=== PATIENT | male | born 1955 | race Caucasian/White ===

== ENCOUNTER 2025-05-07 03:17 | Inpatient (IN) | payer MEDICARE, MEDICAID ==
[2025-05-07] VITALS (8 sets, daily range): BP systolic 104–129; BP diastolic 60–82; PULSE 79–96; RESP 16–24; TEMP 97.5–99.2; O2SAT 92–96
[~2025-05-07] VITALS: Ht 182.9 cm; Wt 201.0 kg
--- NOTE | 2025-05-07 03:46 | ELECTROCARDIOGRAPH REPORT ---
[facility] Test Date: 2025-05-07 Test Time: 03:25:44 Pat Name: MILLI MELO Department: EMERGENCY ROOM Patient ID: [facility]-[id number] Room: Gender: M Contact Center Manager: : 1955 Requested By: DEE LOPES Order Number: [id number] Reading MD: Dr. Dee Lopes Measurements Intervals [place] Rate: 76 P: 54 SC: 178 QRS: -6 QRSD: 109 T: 46 QT: 415 QTc: 467 Interpretive Statements Sinus rhythm Electronically Signed On 05-07-2025 4:00:[address] Dee Lopes Please click the below link to view image of tracing.
[2025-05-07 04:19] LABS: MEAN PLATELET VOLUME 7.1 FL (7.4-10.4); RED CELL DISTRIBUTION WIDTH 16.1 % (11.5-14.5)
[2025-05-07 04:30] LABS: ABG BASE EXCESS 4.9 mmol/L (-2.0-3.0); ABG HCO3 30.9 mmol/L (21.0-28.0); ABG OXYGEN SATURATION 98.4 % (94.0-98.0); ABG PCO2 (T) 53.2 mmHg (35.0-48.0); ABG PH (T) 7.383 (7.350-7.450); ABG PO2 (T) 117.5 mmHg (83.0-108.0); ALLEN'S TEST Modified; FCOHb 1.0 % (0.5-1.5); FHHb 1.6 % (0.0-5.0); FIO2 32.0 mmHg/%; FMetHb 0.0 % (0.0-1.5); FO2Hb 97.4 % (94.0-98.0); MODE oxy mask; PATIENT TEMPERATURE 37.1; TOTAL HEMOGLOBIN 10.5 G/dl (13.5-17.5)
--- NOTE | 2025-05-07 04:39 | RADIOLOGY REPORT ---
CHEST RADIOGRAPH Indication: CP Technique: Single frontal view of the chest was obtained Comparison: None IMPRESSION: Heart is enlarged. Moderate pulmonary vascular congestion with diffuse patchy airspace opacities which may be on the basis of pulmonary edema or infection. No sizable effusion or pneumothorax.
[2025-05-07] MEDS ORDERED: FURO20TA4 PO (06:09)
[2025-05-07] MEDS ORDERED: FERR325T29 PO (06:09)
[2025-05-07] MEDS ORDERED: PANT40TA54 PO (06:09)
[2025-05-07] MEDS ORDERED: GABA-535 PO (06:09)
[2025-05-07] MEDS ORDERED: ZOLP-679 PO (06:09)
[2025-05-07] MEDS ORDERED: FAMO20TA8 PO (06:09)
[2025-05-07] MEDS ORDERED: POTA-366 PO (06:09)
[2025-05-07] MEDS ORDERED: LEVO100T9 PO (06:09)
[2025-05-07] MEDS ORDERED: DOXE50CA4 PO (06:09)
[2025-05-07] MEDS ORDERED: BUSP5TAB3 (06:09)
[2025-05-07] MEDS ORDERED: QUET100T34 PO (06:09)
[2025-05-07] MEDS ORDERED: ROSU10TA98 PO (06:09)
[2025-05-07] MEDS ORDERED: BACL20TA PO (06:09)
[2025-05-07] MEDS ORDERED: BUSP15TA7 PO (06:09)
[2025-05-07] MEDS ORDERED: APIX5TAB3 PO (06:09)
[2025-05-07] MEDS ORDERED: MIDO5TAB4 PO (06:09)
[2025-05-07 06:10] LABS: CREATININE 0.88 MG/DL (0.60-1.10); PRO BRAIN NATRIURETIC PEPTIDE 4295 PG/ML (0-125); TOTAL CARBON DIOXIDE 34.3 MMOL/L (24-32); eCRCL 87 ML/MIN; eGFR 86 ML/MIN
[2025-05-07] MEDS ORDERED: magnesium sulf-water 4G/100mL 100 ML IV PRN (06:20)
[2025-05-07] MEDS ORDERED: potassium Cl 40MEQ/1/2NS 520ml 520 ML IV PRN (06:20)
[2025-05-07] MEDS ORDERED: ondansetron/PF 4mg/2ml inj IV PRN (06:20)
[2025-05-07] MEDS ORDERED: magnesium sulf-water 2g/50mL 50 ML IV PRN (06:20)
[2025-05-07] MEDS ORDERED: magnesium Cl slow-release 64mg tablet PO PRN (06:20)
[2025-05-07] MEDS: PERFLUTREN PROTEIN-A MICROSPHR (Optison) 0.22 MG/ML 3ML VIAL IV ONE (06:20)
[2025-05-07] MEDS ORDERED: potassium Cl 20 mEq SR tablet PO PRN ×2 (06:20)
--- NOTE | 2025-05-07 06:48 | Physician Documentation ---
History of Present Illness ~ Chief Complaint: Weakness Stated Complaint: NSTEMI Time Seen by MD: 05:18 OK to notify your PCP?: Yes Source: patient, RN/MD, EMS, RN notes reviewed, EMS notes reviewed, old records Mode of Arrival: EMS Exam Limitations: clinical condition HPI This patient was seen and treated at [facility] for some generalized weakness. This patient was a frequent Flyer to the hospital [place] in [place] but then has not been seen in a long time has a caregiver with the caregiver called EMS because he was having low oxygenation desatting in the 70s on room air and when EMS arrived they gave him 8 L nasal cannula. Patient has not been taking Lasix for the last few days. He does have a psych history he was afebrile and while in the emergency room department was given 40 of Lasix and had 1.4 L output. During his workup there was concern for pneumonia for which he received 2 g of vancomycin and 2 g of Rocephin. Patient received aspirin and nitroglycerin after he was found to have a non ST-elevation with a troponin of 0.56. BNP was not excessively high what is 450. He was transferred to our facility with a diagnosis of non ST-elevation AK, pneumonia,, acute respiratory distress and fever. Patient was then transferred to our facility for further workup and care. Patient also received Lovenox 200 mg subQ, aspirin was given by EMS, prior to transfer patient's negative for influenza a and B as well as COVID. Patient's tox screen was positive for marijuana only. Patient's initial EKG did not show any significant ST changes Review of the medical record shows that he received some albuterol treatments for the above problem per EMS and that he has been having a gradual decline that has been chronic patient has been known to have medical noncompliance. Past medical history diabetes mellitus, hypertension, heart failure, coronary artery disease, COPD, pneumonia, hypothyroidism, psychiatric history, DVT, hyperlipidemia, anxiety, GI bleed, neuropathy, obesity, arthritis, anxiety Past surgical history lower extremity amputation, left patellar tendon repair, total knee left knee joint replacement, testicle surgery tonsillectomy Social history denies alcohol disabled use a walker and wheelchair Medication Reconciliation Allergies: Coded Allergies: No Known Allergies (Unverified , 05/07/25) Scheduled Apixaban (Eliquis), 1 TAB PO BID, (Reported) Baclofen (Baclofen), 1 TAB PO BID, (Reported) Buspirone HCl (Buspirone HCl), 1 TAB PO BID, (Reported) Doxepin HCl (Doxepin HCl), 1 CAP PO HS, (Reported) Famotidine (Famotidine), 1 TAB PO BID, (Reported) Gabapentin (Gabapentin), 1 CAP PO DAILY, (Reported) Levothyroxine Sodium (Levothyroxine Sodium), 1 TAB PO QAM, (Reported) Pantoprazole Sodium (Pantoprazole Sodium), 1 TAB PO QAM, (Reported) Potassium Chloride (Potassium Chloride), 1 TAB PO BID, (Reported) Rosuvastatin Calcium (Rosuvastatin Calcium), 1 TAB PO DAILY, (Reported) Miscellaneous Medications Buspirone Hcl* (Buspar*), (Reported) Ferrous Sulfate (Ferrous Sulfate), (Reported) Furosemide (Furosemide), (Reported) Midodrine HCl (Midodrine HCl), (Reported) Quetiapine Fumarate (Quetiapine Fumarate), (Reported) Zolpidem Tartrate (Ambien), (Reported) Past Medical History Smoking Status: Unknown if ever smoked Review of Systems ROS Unable to evaluate due to the patient's mental status Physical Exam Vital Signs: RN Vital Signs have been reviewed: Yes, Temperature: 98.7, Source: Oral, Heart Rate: 80, Respiratory Rate: 18, BP: 127/74, Pulse Oximetry: 98, Weight: 201.000 Oxygen Flow Rate: 3.5 Physical Exam General: The patient is well developed, well nourished, ill appearing and is in no acute distress. Somnolent, morbidly obese Skin: [place], warm and dry with no rashes. HEENT: Head was normocephalic and atraumatic. Eyes - pupils equal, round, reactive to light and accommodation. Extraocular movements were intact. Conjunctivae were nonicteric. The mouth and oropharynx were clear with moist mucous membranes. There were no pharyngeal exudates or erythema. Neck: Supple and nontender. There was no jugular venous distention, lymphadenopathy, thyromegaly or masses. Chest: Trace rhonchi, trace crackles at the base short shallow breath sounds no active wheezing, no accessory muscle use no tachypnea Heart: Rate regular and rhythmic. S1, S2. No murmurs. Palpation of the chest wall was normal. Abdomen: Soft, nontender and nondistended. Positive bowel sounds. No guarding or rebound. Extremities: Right lower extremity below-knee amputation. Left lower extremity some dependent edema. Neurologic: Motor sensory grossly intact somnolent Psychologic: The patient was oriented to person, Progress Progress Note 5:50 a.m. discussed the case with the hospitalist for admission Results/Orders Reviewed/noted all lab results: Yes Results/Orders Orders - DAVID LOPES MD Chest,Single View (05/07/25 03:55) Monitor (05/07/25 03:44) Saline Lock (05/07/25 03:44) Oxygen (05/07/25 03:44) Electrocardiogram (05/07/25 03:44) Hs Troponin I W Calculations (05/07/25 05:44) Hs Troponin I W Calculations (05/07/25 06:44) Abg (Arterial Blood Gas) (05/07/25 ) Page Hospitalist (05/07/25 05:25) Fill Out Med Reconciliation (05/07/25 05:25) Completed Orders - DAVID LOPES MD Chest,Single View (05/07/25 03:55) Cbc/Diff (05/07/25 03:44) Electrocardiogram (05/07/25 03:44) Vital Signs 05/07/25 05/07/25 05/07/25 03:24 04:11 04:23 Temp 98.7 Pulse 97 71 Resp 18 21 29 B/P (MAP) 154/78 113/72 (86) Pulse Ox 95 97 O2 Flow Rate 3.5 Laboratory Tests Test 05/07/25 04:06 05/07/25 04:22 05/07/25 05:39 White Blood Count 6.2 Red Blood Count 4.33 L Hemoglobin 11.9 L Hematocrit 35.7 L Mean Corpuscular Volume 82.4 Mean Corpuscular Hemoglobin 27.4 Mean Corpuscular Hemoglobin Concent 33.2 Red Cell Distribution Width 16.1 H Platelet Count 195 Mean Platelet Volume 7.1 L Neutrophils (%) (Auto) 89.5 H Lymphocytes (%) (Auto) 4.0 L Monocytes (%) (Auto) 6.0 Eosinophils (%) (Auto) 0.1 Basophils (%) (Auto) 0.4 Neutrophils # (Auto) 5.5 Lymphocytes # (Auto) 0.2 L Monocytes # (Auto) 0.4 Eosinophils # (Auto) 0.0 Basophils # (Auto) 0.0 CBC Comment Prothrombin Time 11.4 INR International Normalized Ratio 1.1 Activated Partial Thromboplast Time 36 H Coagulation Comments Lactic Acid Level 0.6 Chemistry Comments Blood Gas Specimen Type Arterial Blood Gas Puncture Site Rr O2 Saturation 98.4 H Arterial Blood pH (Temp corrected) 7.383 Arterial Blood pCO2 (Temp correct) 53.2 H Arterial Blood pO2 (Temp corrected) 117.5 H Arterial Blood PO2/FiO2 Ratio 3.65 Arterial Blood HCO3 30.9 H Arterial Blood Base Excess 4.9 H Arterial Blood Oxyhemoglobin 97.4 Arterial Blood Carboxyhemoglobin 1.0 Arterial Blood Methemoglobin 0.0 Arterial Blood Deoxyhemoglobin 1.6 Lenin Test Modified Blood Gas Hemoglobin 10.5 L Blood Gas Temperature 37.1 Blood Gas Modality oxy mask FiO2 32.0 Sodium Level 138 Potassium Level 3.8 Chloride Level 99 Carbon Dioxide Level 34.3 H Anion Gap 5 L Blood Urea Nitrogen 14 Creatinine 0.88 Estimated GFR/1.73 m2 86 BUN/Creatinine Ratio 15.9 Glucose Level 118 H Calcium Level 8.3 L Phosphorus Level 4.2 Magnesium Level 2.2 Total Bilirubin 0.4 Direct Bilirubin 0.1 Aspartate Amino Transf (AST/SGOT) 36 Alanine Aminotransferase (ALT/SGPT) 12 Alkaline Phosphatase 88 Troponin I High Sensitivity 375 *H Pro-B-Type Natriuretic Peptide 4295 H Total Protein 7.6 Albumin 2.5 L Globulin 5.1 H Albumin/Globulin Ratio 0.5 L Thyroid Stimulating Hormone (TSH) 1.75 Re-Evaluation Re-Evaluation : Re-Evaluation: Unchanged Progress Patient was placed in 16 Laboratory obtained and pending. Continuous property assessment monitor interpretation shows normal sinus rhythm heart rate 70s, no ectopy, normal, my interpretation. Pulse oximetry monitor interpretation shows low oxygenation at 97% on 3.5 L, abnormal, my interpretation. EKG/XRAY/CT/US/VASC/MRI EKG : Intepreting Monitor?: Yes Additional Comment Ordering Physician: DAVID LOPES MD Exam Name: ELECTROCARDIOGRAM Technologist: [facility] Test Date: 2025-05-07 Test Time: 03:25:44 Pat Name: MILLI TRIVELPIECE Department: EMERGENCY ROOM Room: Gender: M Data Analysis Assistant: : 1955 Requested By: DAVID LOPES Order Number: [id number] Reading MD: Dr. David Lopes Measurements Intervals [place] Rate: 76 P: 54 ME: 178 QRS: -6 QRSD: 109 T: 46 QT: 415 QTc: 467 Interpretive Statements Sinus rhythm Electronically Signed On 05-07-2025 4:00:[address] David Lopes Please click the below link to view image of tracing. EKG Date and Time:05/07/25324 Electronically Signed by: DAVID LOPES MD Date and Time: 05/07/25399 Chest X-Ray : Additional Comments CHEST RADIOGRAPH Indication: CP Technique: Single frontal view of the chest was obtained Comparison: None IMPRESSION: Heart is enlarged. Moderate pulmonary vascular congestion with diffuse patchy airspace opacities which may be on the basis of pulmonary edema or infection. No sizable effusion or pneumothorax. Electronically Signed by:MARELY PECK MD Date & Time: 05/07/25437 Dictated by: MARELY PECK MD Dictation date and time: 05/07/25437 Primary Care Provider: NO PRIMARY CARE PROVIDER Heart Score: Heart Score Response (Comments) Value History Slightly Suspicious 0 EKG Repolarization Disturb 1 Age >65 2 Risk Factors 1 or 2 risk factors 1 Troponin >3 x's Normal limit 2 Total 6 Medical Decision Making Additional information obtaine: old records Findings Patient was seen and examined. Patient was found to have a troponin of 375. ProBNP elevated at 4295. Patient has some CO2 retention at 34.3. Patient's blood gas analysis is much improved pH of 7.38 pCO2 50 PO2 100 bicarb 30.9 base excess 4.9. Patient was seen briefly placed in bed 16. Orders for labs were redrawn. Hospitalist was paged for admission. Differential Dx:Considerations: Include: anemia, dehydration, dysrhythmia, electrolyte imbalance, myocardial infarction, pulmonary embolus, renal failure, respiratory failure, other Departure Disposition: ADMITTED INPATIENT Admitted to Inpatient Unit: to hospitalist Admission Level of Care: PCU with Tele Impression: Primary Impression: Myocardial infarction Qualified Codes: I21.4 - Non-ST elevation (NSTEMI) myocardial infarction Additional Impressions: Acute respiratory failure with hypoxia and hypercarbia Pneumonia Condition: Guarded Referrals: NO PRIMARY CARE PROVIDER (PCP) Education Educated: Patient Educated regarding: diagnosis, need for follow up, other Critical Care Note Total Time (mins): 33 Critical Care Note The very real possibility of a deterioration of this patient's condition required the highest level of my preparedness for sudden, emergent intervention. I provided critical care services, which included medication orders, frequent reevaluations of the patient's condition and response to treatment, ordering and reviewing test results, and discussing the case with various consultants. Excludes time spent performing separately billable procedures. The critical care time associated with the care of the patient was.33 min Signature Scribe Signature: The note accurately reflects work and decisions made by me.David Lopes MD 05/07/25 06:41 Attestation: The note accurately reflects work and decisions made by me.David Lopes MD 05/07/25 06:41 DAVID LOPES MD May 07, 2025 06:48
[2025-05-07 06:51] LABS: PHOSPHORUS 4.2 MG/DL (2.3-4.5)
--- NOTE | 2025-05-07 06:51 | HISTORY AND PHYSICAL-Residence ---
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 Patient was hypersomnolence and altered mental status with confusion and disorientation in ER. Pt dose not recall much things and he dose not feel much difference from his previous situations. Patient only responded questions by repeating with " My Caregiver overly concern" when I asked about the reason to be in ER. He reported that he was having chest pain but dose not have any CP now and Shortness of breath. The patient's caregiver has a concern for weaker than normal and noted with shortness of breaths and coughing and grunting at home. The patient is currently having care by [facility] worker. Patient stated that he does not have any next of kin and he is currently living by himself at house with the help of [facility] worker/caregiver. Allergies: Coded Allergies: No Known Allergies (Unverified , 05/07/25) Home Medications Home Medications Active Reported Ferrous Sulfate 325 Mg (65 Mg Iron) Tablet Pantoprazole Sodium 40 Mg Tablet.dr 1 Tab PO QAM Baclofen 20 Mg Tablet 1 Tab PO BID Midodrine HCl 5 Mg Tablet Eliquis (Apixaban) 5 Mg Tablet 1 Tab PO BID Famotidine 20 Mg Tablet 1 Tab PO BID Furosemide 20 Mg Tablet Levothyroxine Sodium 100 Mcg Tablet 1 Tab PO QAM Buspar* (Buspirone HCl) 5 Mg Tablet Ambien (Zolpidem Tartrate) 10 Mg Tablet Quetiapine Fumarate 100 Mg Tablet Potassium Chloride 20 Meq Tablet.er 1 Tab PO BID Doxepin HCl 50 Mg Capsule 1 Cap PO HS Rosuvastatin Calcium 10 Mg Tablet 1 Tab PO DAILY Gabapentin 400 Mg Capsule 1 Cap PO DAILY Buspirone HCl 15 Mg Tablet 1 Tab PO BID Past Medical History Past Medical History CAD, CHF, DVT and hyperlipidemia. Hypothyroidism Past Surgical History Surgical History Comment No significant past surgical history were obtained although the patient has right BKA and right lower mid abdominal surgical scar. Past Social History Social History Comment Not available. Current living by himself at the house with the help of [facility] worker without having any next of kin. ROS All Other Systems: Reviewed and Negative ROS As mentioned in HPI Exam Vitals: Vital Signs Date Time Temp Pulse Resp B/P (MAP) Pulse Ox O2 Delivery O2 Flow Rate FiO2 05/07/25 05:49 80 18 127/74 (91) 98 3.5 05/07/25 03:24 98.7 General: General: alert, disoriented and only oriented to person himself, confused, not agitated, not in acute distress, well cooperated during the physical. HEENT: HEENT: Conjunctive are pink, sclerae clear, no icterus, pupil is equal in both sides, reactive to light, no ear discharge, no pharyngeal erythema or an edema, mouth and lips are slightly dry. Neck: Neck: Supple, no JVD, no lymphadenopathy and thyromegaly. Chest: Lungs:Equal air entry on both lungs, bilateral basal crackles, rhonchi Cardiovascular: Heart: S1-S2 regular sinus rhythm and, regular rate, no gallops, no rubs, no murmurs Abdomen: Abdomen: No visible peristalsis, Bowel sounds present on auscultation, soft, nontender, no guarding, no rigidity, the right lower middle surgical scar, diffusely centrally obese abdomen Extremities: Extremities: No obvious deformities, 3+ pitting edema bilaterally, capillary refill intact, able to wiggle toes both sides, peripheral pulsations are intact on both sides Right BKA on prosthesis Central Nervous System: CERTIFIED RETINAL ANGIOGRAPHER: No focal neurological deficits, no motor and sensory weakness in all 4 extremities, could move all 4 extremities Musculoskeletal: Musculoskeletal: No joint swelling, deformities, inflammations, and no scoliosis and back tenderness Skin: Skin: No active skin lesions and rashes Diagnostic Data Last Recorded Lab Results: 05/07/25 0406 05/07/25 0539 Diagnostic Data: Laboratory Tests Test 05/07/25 04:06 Coagulation Comments Advance Care Planning Advanced Care plannin - 30 Minutes Additional Plan A 70 years old male who was transferred from the [facility] for further management with a concern of non-STEMI S the patient presented to the ER with acute chest pain and shortness of breaths, coughing with the past medical history of CAD, CHF, DVT and hyperlipidemia, hypothyroidism, 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 # NSTEMI # acute on chronic hypoxic respiratory failure from # possible CHF exacerbation # hyperventilation syndrome # BMI 60.1, > Class 4 obesity -elevated troponin level at [facility] with 0.56, repeated troponin here showing [address]-T elevation in EKG, in the presence of complaint with the chest pain -no cord sure if the patient was given loading dose of aspirin at [facility], to consider loading dose if patient was not given yet -On IV heparin as per cardiac protocol -elevated proBNP in very obese patient which could be falsely low -given IV loading dose of the furosemide 60 mg followed by 40 daily -oxygen supplement as needed -continue telemetry monitoring -med rec pending -hypoventilation syndrome # acute metabolic encephalopathy from # aspiration pneumonia versus community-acquired pneumonia-POA, cover with broad-spectrum antibiotics -chest x-ray showed Heart is enlarged. Moderate pulmonary vascular congestion with diffuse patchy airspace opacities which may be on the basis of pulmonary edema or infection. No sizable effusion or pneumothorax. -ABG done, maintaining normal pH with carbon dioxide retention and possible metabolic alkalosis compensation for chronic respiratory acidosis -was given IV vancomycin and Rocephin in [facility] -started IV Rocephin and azithromycin -sputum culture pending -blood culture pending -pending CT head without IV contrast -pending ammonia -DuoNeb q.4 hours as needed # normochromic normocytic anemia -unknown etiology -possibly poor intake versus early stage of DAMIAN CODE STATUS: Full code, DVT prophylaxis: IV heparin Analgesia/sedation: IV morphine as needed Lines/tubes: PIV GI prophylaxis: Protonix Prognosis: Guarded Disposition: Continue medical management including GDM T, heparin, cardiology consultation, IV antibiotics for pneumonia, echocardiogram pending, med rec pending, needs to gather more information from caregiver, PT eval and DC plan. Resident MD attestation: Patient was seen, examined and discussed with attending MD, Dr. Edwige ANDUJAR MD Internal Medicine Resident, PGY3 [facility] Edwige Addendum #1 Neuro: Pt appears somewhat confused, would get head ct treat for sepsis, get hx of baseline mental function - Monitor for delirium #2 CV: Patient exhibits symptoms indicative of acute coronary syndrome, suspect NSTEMI. - Continue ASA, anticoagulation - Initiate statin therapy - Consult Cardiology for further management - Echocardiogram needed to determine HFpEF vs HFrEF - Continue diuretics for volume overload: Lasix History of peripheral arterial disease, continue to monitor for distal pulses #3 Pulm: Suspected pneumonia based on chest X-ray findings; possible community- acquired pneumonia - Start treatment with ceftriaxone and azithromycin - Support with Duoneb #4 GI: - Advance diet as tolerated with close monitoring by primary team #5 Renal: - Closely monitor renal function for signs of JUAN A - Regularly replete electrolytes as needed #6 ID: Suspected pneumonia with consolidation on CXR - Antibiotic coverage with ceftriaxone and azithromycin - Obtain blood and sputum cultures - Conduct additional tests: COVID-19, respiratory viral panel, Legionella and Chlamydia antigens #7 Endo: Manage blood sugar levels - Maintain glucose between 150-180 mg/dL Dyslipidemia: Continue current statin and lipid-lowering therapy Hypothyroidism: continue Synthroid #8 Heme/Onc: - Monitor for bleeding or clotting complications - Maintain hemoglobin >7 g/dL, platelets >10x10^9/L #9 PPx: - Ensure chemical DVT prophylaxis with Heparin I saw this patient and completed a full visual exam via audio-visual HIPAA compliant technology. Date of Service: May 07, 2025 Billing Provider: IVONNE PA MD CON,TIN, RES May 07, 2025 06:51 IVONNE PA MD May 07, 2025 07:41
[2025-05-07] MEDS: K and/or MAG REPLACEMENT MC SCH (06:53)
[2025-05-07 06:55] LABS: APTT 36 SECONDS (22-32); INR 1.1 INR
[2025-05-07] MEDS ORDERED: ipratropium/albuterol 3ml nebule NEB PRN (06:55)
[2025-05-07] MEDS: MESSAGE TO NURSING IV ONE ×3 (07:15→23:00)
[2025-05-07 07:20] LABS: LEUKOCYTE ESTERASE ,URINE NEGATIVE (Neg); NITRITES, URINE NEGATIVE (Neg); OCCULT BLOOD,URINE TRACE-INTACT (Neg); UA COLLECTION TYPE NON-SPECIFIED
[2025-05-07 07:25] LABS: MUCUS STRANDS NONE SEEN /LPF (Neg); SQUAMOUS EPITHELIAL CELL,UR FEW /LPF (FEW)
[2025-05-07] MEDS: pantoprazole 40mg Tablet.DR PO SCH (07:30)
[2025-05-07] MEDS ORDERED: heparin, porcine 5000 units/ml vial SQ SCH (08:00)
[2025-05-07] MEDS: docusate sod 100mg capsule PO SCH (08:00)
[2025-05-07] MEDS: CefTRIAXone/D5W-Rocephin 1gm 50 ML IV SCH (08:06)
[2025-05-07] MEDS: heparin 10,000 units/1 ML INJ IV ONE (08:16)
[2025-05-07] MEDS: heparin 25,000 UNIT/250ml bag 250 ML IV PRN (08:17)
[2025-05-07] MEDS: furosemide 10 MG/1 ML 10ml inj IV ONE (08:19)
[2025-05-07] MEDS: azithromycin/NS 500mg/250ml 250 ML IV SCH (08:20)
[2025-05-07] MEDS: morphine 4 MG/ML inj SYRINge IV ONE (09:11)
--- NOTE | 2025-05-07 11:25 | RADIOLOGY REPORT ---
EXAM: CT CT HEAD INDICATION: to rule out any intracranial pathology TECHNIQUE: CT of the head without intravenous contrast. Radiation Dose : 1. Head: CT Dose: CTDI volume is 36 0.9 mGy. Dose-length product is 789.68 mGy*cm The dose indicators for CT are the volume Computed Tomography (CT) Dose Index (CTDIvol) and the Dose Length Product (DLP), and are measured in units of mGy and mGy-cm, respectively. These indicators are not patient dose, but values generated from the CT scanner acquisition factors. The report includes radiation exposure data for exposures received during this examination. COMPARISON: None FINDINGS: There is no evidence of acute intracranial hemorrhage, extra-axial collection, mass effect, midline shift, herniation or hydrocephalus. The ventricles, sulci and cisterns are age appropriate. The abdullahi-white differentiation is intact. Patchy periventricular and subcortical white matter hypoattenuation is nonspecific but may be related to small vessel ischemic disease. The visualized paranasal sinuses and mastoid air cells are clear. The surrounding soft tissues and osseous structures are unremarkable. IMPRESSION: No acute intracranial abnormality. Radiation optimization: All CT scans at this facility use at least one of these dose optimization techniques: automated exposure control mA and/or kV adjustment per patient size (includes targeted exams where dose is matched to clinical indication) or iterative reconstruction.
[2025-05-07] MEDS ORDERED: aminophylline 250mg/10ml inj. IV PRN (11:40)
[2025-05-07] MEDS ORDERED: metoprolol tartrate 1mg/ml inj IV PRN (11:40)
[2025-05-07] MEDS ORDERED: regadenoson 0.4mg/5ml syringe IV PRN (11:40)
[2025-05-07] MEDS: heparin 10,000 units/1 ML INJ IV PRN (14:44)
[2025-05-07 16:16] LABS: ABG BASE EXCESS 4.4 mmol/L (-2.0-3.0); ABG HCO3 30.5 mmol/L (21.0-28.0); ABG OXYGEN SATURATION 97.8 % (94.0-98.0); ABG PCO2 (T) 52.7 mmHg (35.0-48.0); ABG PH (T) 7.382 (7.350-7.450); ABG PO2 (T) 103.3 mmHg (83.0-108.0); ALLEN'S TEST POSITIVE; FCOHb 0.8 % (0.5-1.5); FHHb 2.2 % (0.0-5.0); FIO2 50.0 mmHg/%; FLOW 8 L/min; FMetHb 0.1 % (0.0-1.5); FO2Hb 96.9 % (94.0-98.0); MODE MASK - SIMPLE; PATIENT TEMPERATURE 37.2; TOTAL HEMOGLOBIN 12.6 G/dl (13.5-17.5)
--- NOTE | 2025-05-07 18:43 | PROGRESS NOTE ---
Clinical Note Clinical Note Progress Note: This is a transfer from [facility] ED- the patient is morbidly obese and is disabled and has a [facility] worker/caregiver. The patient denies any chest pain and was complaining of back pain for which I gave morphine The patient was transferred for an NSTEMI however the patient is troponins are flat with the initial troponin of 375 followed by 341. followed by 385. Lexiscan stress test as ordered for the morning the patient is on heparin drip I ordered 25 mg of metoprolol tartrate x1 and atorvastatin 40 mg x 1 and a fasting lipid panel is ordered The patient has a acute respiratory failure as well as on 6 L of oxygen currently ABG was obtained which demonstrates a pCO2 of 53.2 repeat pCO2 is 52.7. Gen. No acute distress alert and confused, morbidly obese Lungs clear to ascultation bilaterally, no wheezes rales or rhonchi appreciated Heart normal sinus rhythm no murmurs rubs or clicks noted Abdomen soft nontender bowel sounds are normoactive Lower extremities no clubbing cyanosis, 2+ pitting edema appreciated bilaterally, BKA with a right prosthesis is present Not billable admitted after midnight to be billed by NICK Templeton DO May 07, 2025 18:43
[2025-05-07] MEDS: busPIRone 15mg tablet PO SCH (19:59)
[2025-05-07] MEDS: sulfamethoxazole/trimethoprim 800/160mg per 20ml oral susp PO SCH (19:59)
[2025-05-07] MEDS: potassium Cl 20 mEq SR tablet PO SCH (20:00)
[2025-05-08] VITALS (15 sets, daily range): BP systolic 106–151; BP diastolic 54–85; PULSE 70–89; RESP 12–26; TEMP 97.5–99.9; O2SAT 90–96
[2025-05-08] MEDS: HYDROcodone/acetaminophen 5mg/325mg tablet PO ONE (01:31)
[2025-05-08 04:11] LABS: MEAN PLATELET VOLUME 7.3 FL (7.4-10.4); RED CELL DISTRIBUTION WIDTH 16.2 % (11.5-14.5)
[2025-05-08 04:22] LABS: CHOL/HDL RATIO 2.9 (0.00-4.99); CREATININE 0.60 MG/DL (0.60-1.10); LDL CHOLESTEROL 37 MG/DL (50-100); TOTAL CARBON DIOXIDE 36.4 MMOL/L (24-32); eCRCL 128 ML/MIN; eGFR > 90 ML/MIN
[2025-05-08] MEDS: MESSAGE TO NURSING IV ONE (04:33)
[2025-05-08] MEDS: pantoprazole 40mg Tablet.DR PO SCH (07:30)
[2025-05-08] MEDS: levoTHYROXINE 100mcg tablet PO SCH (09:30)
[2025-05-08 12:44] LABS: ABG BASE EXCESS 8.2 mmol/L (-2.0-3.0); ABG HCO3 36.2 mmol/L (21.0-28.0); ABG OXYGEN SATURATION 98.7 % (94.0-98.0); ABG PCO2 (T) 65.9 mmHg (35.0-48.0); ABG PH (T) 7.355 (7.350-7.450); ABG PO2 (T) 126.5 mmHg (83.0-108.0); ALLEN'S TEST Yes; FCOHb 0.8 % (0.5-1.5); FHHb 1.3 % (0.0-5.0); FIO2 40.0 mmHg/%; FLOW 5 L/min; FMetHb 0.3 % (0.0-1.5); FO2Hb 97.6 % (94.0-98.0); MODE NASAL CANNULA; PATIENT TEMPERATURE 36.4; TOTAL HEMOGLOBIN 12.6 G/dl (13.5-17.5)
[2025-05-08] MEDS: ipratropium/albuterol 3ml nebule NEB SCH (12:53)
[2025-05-08] MEDS: heparin, porcine 5000 units/ml vial SQ SCH (17:01)
--- NOTE | 2025-05-08 17:59 | CARDIOLOGY REPORT ---
APPROVED REPORT EXAM: Limited 2D, Doppler, and color-flow Echocardiogram. Patient Location: 3013 [address] Heart Rate: 70's bpm Rhythm: SINUS Indications CONGESTIVE HEART FAILURE CHEST PAIN SHORTNESS OF BREATH Tallow Pumper: NONE Previous echo: NONE 2D Dimensions LVDd 5.7 cm LVOT Diameter 2.25 (1.8-2.4cm) M-Mode Dimensions Aortic Root 4.39 (2.2-3.7cm) Aortic Valve AoV Peak Maximiliano. 106.8 cm/s AoV VTI 17.1 cm AO Peak GR. 4.6 mmHg AO Mean GR. 3 mmHg Tricuspid Valve TR P. Velocity 307 cm/s RAP ESTIMATE 10 mmHg TR Peak Gr. 38 mmHg RVSP 48 mmHg LEFT VENTRICLE Dilated LV size with normal wall thickness. Overall systolic function is normal. Overall LVEF is 60-65%. RIGHT VENTRICLE RV appears at least mildly dilated with normal function. Estimated PA systolic pressure of 48 mm of mercury ATRIA The left atrium size appears normal. AORTIC VALVE Trileaflet AV appears sclerotic without stenosis. No insufficiency. TDS MITRAL VALVE Mild MV annular calcification without stenosis. Trace regurgitation. TDS TRICUSPID VALVE TV appears structurally normal with trace regurgitation. PULMONIC VALVE Normal PV without stenosis, physiologic insufficiency. GREAT VESSELS Aortic root is dilated, at 4.39 cm. PERICARDIUM Trace circumferential pericardial effusion without hemodynamic compromise. Other Information Study Quality: Technically Limited due to patient positioning and body habitus Conclusion Overall LVEF is 60-65%. Dilated LV size with normal wall thickness. Overall systolic function is normal. RV appears at least mildly dilated with normal function. Estimated PA systolic pressure of 48 mm of mercury Trileaflet AV appears sclerotic without stenosis. No insufficiency. TDS TV appears structurally normal with trace regurgitation. Normal PV without stenosis, physiologic insufficiency. Trace circumferential pericardial effusion without hemodynamic compromise.
--- NOTE | 2025-05-08 19:16 | PROGRESS NOTE ---
Daily Progress Note Providers to CC ~ Antibiotic Timeout Antibiotic Ordered?: Yes Subjective Was seen in presence of to nursing staff. Requiring 6 L of oxygen currently and he mentioned at home he does not use any oxygen. He denied any chest pain to me in visit. Objective Vital Signs Date Time Temp Pulse Resp B/P (MAP) Pulse Ox O2 Delivery O2 Flow Rate FiO2 05/08/25 18:30 77 05/08/25 13:03 24 Nasal Cannula 2.0 05/08/25 12:53 28 05/08/25 11:00 97.5 132/81 (98) 96 Result Diagram: 05/08/25 0352 05/08/25 0352 General-patient not in any acute distress, alert awake , morbidly obese, chronically ill-appearing, age-appropriate HEENT-atraumatic normocephalic, neck supple without elevated JVD, no thyromegaly or carotid bruit. No lymphadenopathy bilaterally. Eyes-no icterus or pallor seen in eyes Chest-mild wheezing present to auscultation bilaterally in lung sounds decreased over lung bases, breathing nonlabored no tachypnea, mild right lower lung crackles present . Heart-S1-S2 normal, regular heart rate no murmur Abdomen bowel sounds positive on auscultation, soft nondistended nontender no guarding, no rigidity Skin no active skin rash, no open decubitus wound over sacral area Neurology-grossly intact, nonfocal alert awake oriented Extremity- no pedal edema able to move all 4 extremities. Status post right BKA and using prosthesis Psychiatry - patient is not confused or agitated cooperated during physical examination Coagulation Studies Laboratory Tests Test 05/07/25 04:06 05/08/25 10:33 Prothrombin Time 11.4 SECONDS (9.0-12.0) INR International Normalized Ratio 1.1 INR Activated Partial Thromboplast Time 36 SECONDS (22-32) H APTT (Heparin Protocol) 31 SECONDS (45-60) L Coagulation Comments Problem\Assessment\Plan A 70 years old male who was transferred from the [facility] for further management with a concern of non-STEMI S the patient presented to the ER with acute chest pain and shortness of breaths, coughing with the past medical history of CAD, CHF, DVT and hyperlipidemia, hypothyroidism, 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 The patient was transferred for an NSTEMI however the patient is troponins are flat with the initial troponin of 375 followed by 341. followed by 385.Lexiscan stress test as ordered for the morning the patient is on heparin drip . Dr Pereira ordered 25 mg of metoprolol tartrate x1 and atorvastatin 40 mg x 1 and a fasting lipid panel is ordered. The patient has a acute respiratory failure as well as on 6 L of oxygen currently ABG was obtained which demonstrates a pCO2 of 53.2 repeat pCO2 is 52.7. Patient denied any chest pain to me when I evaluated the patient # NSTEMI # acute on chronic hypoxic respiratory failure from # possible CHF exacerbation # hyperventilation syndrome # BMI 60.1, > Class 4 obesity -elevated troponin level at [facility] with 0.56, repeated troponin here showing [address]-T elevation in EKG, in the presence of complaint with the chest pain -On IV heparin as per cardiac protocol -elevated proBNP in very obese patient which could be falsely low -given IV loading dose of the furosemide 60 mg followed by 40 daily -oxygen supplement as needed -will continue telemetry monitoring -med rec done by Dr Pereira -possible hypoventilation syndrome ABG repeated and result reviewed not Able to get the stress testing today as per nursing staff , patient is started on heart healthy diet. # acute metabolic encephalopathy from # aspiration pneumonia versus community-acquired pneumonia-POA, cover with broad-spectrum antibiotics -chest x-ray showed Heart is enlarged. Moderate pulmonary vascular congestion with diffuse patchy airspace opacities which may be on the basis of pulmonary edema or infection. No sizable effusion or pneumothorax. -ABG done, maintaining normal pH with carbon dioxide retention and possible metabolic alkalosis compensation for chronic respiratory acidosis -was given IV vancomycin and Rocephin in [facility] -started IV Rocephin and azithromycin -sputum culture pending -blood culture positive preliminary report -CT head without IV contrast showed No acute intracranial abnormality. -normal ammonia -DuoNeb q.4 hours as needed # normochromic normocytic anemia -unknown etiology -possibly poor intake versus early stage of DAMIAN CODE STATUS: Full code, DVT prophylaxis: IV heparin Analgesia/sedation: IV morphine as needed Lines/tubes: PIV GI prophylaxis: Protonix Patient's current condition is guarded we will continue to follow patient in AM . Date of Service: May 08, 2025 Billing Provider: NIRAV PIZARRO MD Common Visit Codes: [id number] INP/OBS CARE(HIGH) NIRAV PIZARRO MD May 08, 2025 19:16
[2025-05-08] MEDS: HYDROcodone/acetaminophen 10/325mg tab PO ONE (19:53)
[2025-05-09] VITALS (24 sets, daily range): BP systolic 104–161; BP diastolic 61–90; PULSE 68–137; RESP 16–30; TEMP 96.9–99.9; O2SAT 85–96
--- NOTE | 2025-05-09 06:27 | ELECTROCARDIOGRAPH REPORT ---
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 RAHUL Chaudhry Measurements Intervals [place] Rate: 152 P: 0 FL: 0 QRS: 10 QRSD: 90 T: 135 QT: 268 QTc: 426 Interpretive Statements Atrial fibrillation with rapid V-rate Repolarization abnormality, prob rate related Electronically Signed On 05-09-2025 17:32:[address] RAHUL Chaudhry Please click the below link to view image of tracing.
[2025-05-09] MEDS: HYDROcodone/acetaminophen 10/325mg tab PO ONE ×2 (06:46→20:16)
[2025-05-09] MEDS: metoprolol tartrate 1mg/ml inj IV ONE (06:47)
[2025-05-09 07:11] LABS: MEAN PLATELET VOLUME 8.3 FL (7.4-10.4); RED CELL DISTRIBUTION WIDTH 16.3 % (11.5-14.5)
[2025-05-09 07:19] LABS: CREATININE 0.61 MG/DL (0.60-1.10); TOTAL CARBON DIOXIDE 35.7 MMOL/L (24-32); eCRCL 125 ML/MIN; eGFR > 90 ML/MIN
[2025-05-09 14:49] LABS: ABG BASE EXCESS 7.7 mmol/L (-2.0-3.0); ABG HCO3 36.6 mmol/L (21.0-28.0); ABG OXYGEN SATURATION 97.5 % (94.0-98.0); ABG PCO2 (T) 74.4 mmHg (35.0-48.0); ABG PH (T) 7.310 (7.350-7.450); ABG PO2 (T) 99.9 mmHg (83.0-108.0); ALLEN'S TEST POSITIVE; FCOHb 1.3 % (0.5-1.5); FHHb 2.5 % (0.0-5.0); FIO2 32.0 mmHg/%; FLOW 3 L/min; FMetHb 0.2 % (0.0-1.5); FO2Hb 96.0 % (94.0-98.0); MODE NASAL CANNULA; PATIENT TEMPERATURE 37.0; TOTAL HEMOGLOBIN 13.3 G/dl (13.5-17.5)
[2025-05-09] MEDS: vancomycin/NS 1 GM ADD-VANTAGE 250 ML IV SCH (17:45)
[2025-05-09] MEDS: diltiazem-NS 100mg/100ml 100 ML IV SCH (18:40)
--- NOTE | 2025-05-09 19:59 | PROGRESS NOTE ---
Daily Progress Note Providers to CC ~ Antibiotic Timeout Antibiotic Ordered?: No Subjective Patient was seen in his room he was requiring BiPAP repeat ABG ordered. Later today he went into AFib with a RVR started on Cardizem drip. We will continue to monitor vitals. Respiratory therapy team following the patient. Objective Vital Signs Date Time Temp Pulse Resp B/P (MAP) Pulse Ox O2 Delivery O2 Flow Rate FiO2 05/09/25 19:49 68 18 95 Nasal Cannula* 4 36 05/09/25 18:40 138/71 05/09/25 15:00 97.4 Result Diagram: 05/09/25 0554 05/09/25 0554 General-patient not in any acute distress, alert awake , morbidly obese, chronically ill-appearing, age-appropriate HEENT-atraumatic normocephalic, neck supple without elevated JVD, no thyromegaly or carotid bruit. No lymphadenopathy bilaterally. Eyes-no icterus or pallor seen in eyes Chest-mild wheezing present to auscultation bilaterally in lung sounds decreased over lung bases, breathing nonlabored no tachypnea, mild right lower lung crackles present . Heart-S1-S2 normal, regular heart rate no murmur Abdomen bowel sounds positive on auscultation, soft nondistended nontender no guarding, no rigidity Skin no active skin rash, no open decubitus wound over sacral area Neurology-grossly intact, nonfocal alert awake oriented Extremity- no pedal edema able to move all 4 extremities. Status post right BKA and using prosthesis Psychiatry - patient is not confused or agitated cooperated during physical examination Coagulation Studies Laboratory Tests Test 05/07/25 04:06 05/08/25 10:33 Prothrombin Time 11.4 SECONDS (9.0-12.0) INR International Normalized Ratio 1.1 INR Activated Partial Thromboplast Time 36 SECONDS (22-32) H APTT (Heparin Protocol) 31 SECONDS (45-60) L Coagulation Comments Problem\Assessment\Plan A 70 years old male who was transferred from the [facility] for further management with a concern of non-STEMI S the patient presented to the ER with acute chest pain and shortness of breaths, coughing with the past medical history of CAD, CHF, DVT and hyperlipidemia, hypothyroidism, 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 The patient was transferred for an NSTEMI however the patient is troponins are flat with the initial troponin of 375 followed by 341. followed by 385.Lexiscan stress test as ordered for the morning the patient is on heparin drip . Dr Pereira ordered 25 mg of metoprolol tartrate x1 and atorvastatin 40 mg x 1 and a fasting lipid panel is ordered. The patient has a acute respiratory failure as well as on 6 L of oxygen currently ABG was obtained which demonstrates a pCO2 of 53.2 repeat pCO2 is 52.7. Patient denied any chest pain to me when I evaluated the patient # NSTEMI # acute on chronic hypoxic respiratory failure from # possible CHF exacerbation # hyperventilation syndrome # BMI 60.1, > Class 4 obesity -elevated troponin level at [facility] with 0.56, repeated troponin here showing [address]-T elevation in EKG, in the presence of complaint with the chest pain -On IV heparin as per cardiac protocol -elevated proBNP in very obese patient which could be falsely low -given IV loading dose of the furosemide 60 mg followed by 40 daily -oxygen supplement as needed -will continue telemetry monitoring -med rec done by Dr Pereira -possible hypoventilation syndrome ABG repeated and result reviewed, retaining PCo2 not Able to get the stress testing today as per nursing staff , patient is started on heart healthy diet. # acute metabolic encephalopathy from # aspiration pneumonia versus community-acquired pneumonia-POA, cover with broad-spectrum antibiotics -chest x-ray showed Heart is enlarged. Moderate pulmonary vascular congestion with diffuse patchy airspace opacities which may be on the basis of pulmonary edema or infection. No sizable effusion or pneumothorax. -ABG done, maintaining normal pH with carbon dioxide retention and possible metabolic alkalosis compensation for chronic respiratory acidosis -was given IV vancomycin and Rocephin in [facility] -started IV Rocephin and azithromycin -sputum culture pending -blood culture positive preliminary report -CT head without IV contrast showed No acute intracranial abnormality. -normal ammonia -DuoNeb q.4 hours and Xopenex ordered # normochromic normocytic anemia -unknown etiology -possibly poor intake versus early stage of DAMIAN # atrial fibrillation with RVR patient is started on Cardizem drip CODE STATUS: Full code, DVT prophylaxis: IV heparin Analgesia/sedation: IV morphine as needed Lines/tubes: PIV GI prophylaxis: Protonix Patient's current condition is guarded we will continue to follow patient in AM . Date of Service: May 09, 2025 Billing Provider: NIRAV PIZARRO MD Common Visit Codes: [id number] INP/OBS CARE(HIGH) NIRAV PIZARRO MD May 09, 2025 19:59
[2025-05-09] MEDS: levalbuterol 0.63mg/3ml nebule IH SCH (21:00)
[2025-05-09 21:47] LABS: ABG BASE EXCESS 8.8 mmol/L (-2.0-3.0); ABG HCO3 35.0 mmol/L (21.0-28.0); ABG OXYGEN SATURATION 91.4 % (94.0-98.0); ABG PCO2 (T) 55.4 mmHg (35.0-48.0); ABG PH (T) 7.418 (7.350-7.450); ABG PO2 (T) 58.3 mmHg (83.0-108.0); ALLEN'S TEST Modified; FCOHb 1.3 % (0.5-1.5); FHHb 8.5 % (0.0-5.0); FIO2 28.0 mmHg/%; FMetHb 0.3 % (0.0-1.5); FO2Hb 89.9 % (94.0-98.0); MODE BiPAP; PATIENT TEMPERATURE 37.0; RESPIRATORY RATE 12 b/min; TIDAL VOLUME 450 mL; TOTAL HEMOGLOBIN 12.6 G/dl (13.5-17.5)
[2025-05-09] MEDS: diltiazem CD 180mg cap (once-daily) PO ONE (23:32)
[2025-05-10] VITALS (17 sets, daily range): BP systolic 126–157; BP diastolic 59–93; PULSE 66–91; RESP 15–30; TEMP 96.5–99.6; O2SAT 90–96
[2025-05-10 07:05] LABS: MEAN PLATELET VOLUME 7.6 FL (7.4-10.4); RED CELL DISTRIBUTION WIDTH 16.5 % (11.5-14.5)
[2025-05-10] MEDS: magnesium hydroxide 30ml (MOM) UD suspension PO PRN (07:42)
[2025-05-10 07:43] LABS: CREATININE 0.56 MG/DL (0.60-1.10); TOTAL CARBON DIOXIDE 35.2 MMOL/L (24-32); eCRCL 137 ML/MIN; eGFR > 90 ML/MIN
[2025-05-10] MEDS: HYDROcodone/acetaminophen 10/325mg tab PO PRN (07:53)
[2025-05-10] MEDS: diltiazem 30mg tablet PO SCH (08:00)
[2025-05-10] MEDS ORDERED: diltiazem SR 60mg capsule (twice daily) PO SCH (08:00)
--- NOTE | 2025-05-10 13:44 | CONSULTATION REPORT - RESIDENT ---
Consult Providers to CC Resident Creating Document: EDUARDO COTTER RES History of Present Illness Reason for Admit\Complaint: Pneumonia History of Present Illness 70-year-old male patient transferred from [facility] for further management of NSTEMI. The patient presented there with chief complaint of chest pain and shortness of breath, the patient also had some cough with whitish sputum. Medical records the patient presented with altered level of consciousness. Blood cultures obtained during admission showed Gram-positive cocci in clusters-Staphylococcus aureus. The patient got blood cultures at the other facility as well which showed MRSA. The patient has been treated with ceftriaxone and vancomycin so far. Oxygen requirement improving. As per medical records the patient has some wounds level of the buttocks. We were consulted for further management of antibiotic therapy. Allergies: Coded Allergies: No Known Allergies (Unverified , 05/07/25) Home Medications Home Medications Active Reported Ferrous Sulfate 325 Mg (65 Mg Iron) Tablet 1 Tab PO DAILY Pantoprazole Sodium 40 Mg Tablet.dr 1 Tab PO QAM Baclofen 20 Mg Tablet 1 Tab PO BID Midodrine HCl 5 Mg Tablet 1 Tab PO DAILY Eliquis (Apixaban) 5 Mg Tablet 1 Tab PO BID Famotidine 20 Mg Tablet 1 Tab PO BID Furosemide 20 Mg Tablet 2 Tab PO BID Levothyroxine Sodium 100 Mcg Tablet 1 Tab PO QAM Ambien (Zolpidem Tartrate) 10 Mg Tablet 1 Tab PO HS Quetiapine Fumarate 100 Mg Tablet 2 Tab PO HS Potassium Chloride 20 Meq Tablet.er 1 Tab PO BID Doxepin HCl 50 Mg Capsule 1 Cap PO HS Rosuvastatin Calcium 10 Mg Tablet 1 Tab PO DAILY Gabapentin 400 Mg Capsule 1 Cap PO DAILY Buspirone HCl 15 Mg Tablet 1 Tab PO BID Past Medical History Past Medical History CAD, CHF, DVT, hyperlipidemia, hypothyroidism Past Surgical History Surgical History Comment Right BKA. Abdominal hernia repair. Exam Vitals: Vital Signs Date Time Temp Pulse Resp B/P (MAP) Pulse Ox O2 Delivery O2 Flow Rate FiO2 05/10/25 11:00 97.9 71 18 138/70 (92) 96 Nasal Cannula 2.0 05/10/25 07:43 28 Physical exam: General: Awake, alert, oriented. No acute distress. Obese. No anemia, Jaundice or clubbing. HEENT: Conjunctive are pink, sclerae clear, no icterus, pupil is equal in both sides, reactive to light, no ear discharge, no pharyngeal erythema or an edema. Neck: Supple, no adenopathy, thyromegaly. Trachea is midline. No JVD. Chest: Respiratory: Equal air entry bilaterally. Presence of crackles in the left lower lung. Cardiovascular: S1-S2 regular sinus rhythm and, regular rate, no gallops, no rubs, no murmurs Abdomen: No visible distention, Bowel sounds present on auscultation, on palpation: soft, nontender, no guarding, no rigidity. 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 Preserved strength and sensation. Skin: Warm and dry. Diagnostic Data Last Recorded Lab Results: 05/10/25 0641 05/10/25 0647 Diagnostic Data: Laboratory Tests Test 05/07/25 04:06 05/08/25 10:33 Prothrombin Time 11.4 SECONDS (9.0-12.0) INR International Normalized Ratio 1.1 INR Activated Partial Thromboplast Time 36 SECONDS (22-32) H APTT (Heparin Protocol) 31 SECONDS (45-60) L Coagulation Comments Additional Plan Assessment and plan: 70-year-old male patient transferred from [place] due to NSTEMI. Acute hypoxemic respiratory failure: Possible MRSA pneumonia: Patient presented the hospital with chief complaint of chest pain and shortness of breath. X-ray showing moderate pulmonary vascular congestion and diffuse patchy airspace opacities which may be related to pulmonary edema or infection. The patient had blood cultures obtained at [facility] which showed MRSA. Blood cultures here showing Gram-positive cocci in clusters. Noticeable elevated procalcitonin. The patient has been treated with ceftriaxone and vancomycin so far. Oxygen requiring improving from 6 L to 2 L currently. Recommendations: We will discontinue ceftriaxone based on MRSA cultured at the other facility. Continue vancomycin. Other comorbidities: CHF, normocytic normochromic anemia, DVT, dyslipidemia, hypothyroidism, CAD: Appropriately managed by primary team. Resident MD attestation: Patient was seen, examined and discussed with the attending MD, Dr. Gill. Eduardo Black Internal Medicine Resident [facility] Date of Service: May 10, 2025 Billing Provider: ESDRAS GILL MD Addendum Agree with above note. Patient seen and examined with Dr. Black. He was transferred here from [place], and blood cultures are positive for MRSA. Possible sources include respiratory tract and skin/soft tissue. He is morbidly obese with prior amputation of right foot. Continue vancomycin for now. He needs to demonstrate clearance of bloodstream. Eventual placement at [facility]. EDAURDO COTTER, RES May 10, 2025 13:44 ESDRAS GILL MD May 10, 2025 17:22
[2025-05-10] MEDS: mag hydrox/Alum hydrox/simeth 30ml oral suspension PO PRN (13:56)
[2025-05-10] MEDS: VANCOMYCIN LEVEL IV ONE (16:40)
[2025-05-10] MEDS: JUVEN Smoothie Arginine/Glut./Ca2+Bmb (Juven 19.3pkt) 240ml cup PO SCH (17:53)
--- NOTE | 2025-05-10 19:39 | PROGRESS NOTE ---
Daily Progress Note Providers to CC ~ Antibiotic Timeout Antibiotic Ordered?: Yes Subjective Patient was seen in his room using 2 L oxygen currently. As per patient he use CPAP at night. Patient was also evaluated by Infectious Disease team and they recommended to continue vancomycin and to stop ceftriaxone. Per Dr. West he needs to demonstrate clearance of bloodstream. production reproduction manager Najma working on discharge plan for patient in [facility] rehab and as per pillowcase sewer patient is accepted in [facility] rehab. Patient do not like to go to rehab but willing to go if needed. Objective Vital Signs Date Time Temp Pulse Resp B/P (MAP) Pulse Ox O2 Delivery O2 Flow Rate FiO2 05/10/25 15:00 97.7 70 15 134/65 (88) 94 Nasal Cannula 2.0 05/10/25 14:43 28 Result Diagram: 05/10/25 0641 05/10/25 0647 General-patient not in any acute distress, alert awake , morbidly obese, chronically ill-appearing, age-appropriate HEENT-atraumatic normocephalic, neck supple without elevated JVD, no thyromegaly or carotid bruit. No lymphadenopathy bilaterally. Eyes-no icterus or pallor seen in eyes Chest-mild wheezing present to auscultation bilaterally in lung sounds decreased over lung bases, breathing nonlabored no tachypnea, mild right lower lung crackles present . Heart-S1-S2 normal, regular heart rate no murmur Abdomen bowel sounds positive on auscultation, soft nondistended nontender no guarding, no rigidity Skin no active skin rash, no open decubitus wound over sacral area Neurology-grossly intact, nonfocal alert awake oriented Extremity- no pedal edema able to move all 4 extremities. Status post right BKA and using prosthesis Psychiatry - patient is not confused or agitated cooperated during physical examination Coagulation Studies Laboratory Tests Test 05/07/25 04:06 05/08/25 10:33 Prothrombin Time 11.4 SECONDS (9.0-12.0) INR International Normalized Ratio 1.1 INR Activated Partial Thromboplast Time 36 SECONDS (22-32) H APTT (Heparin Protocol) 31 SECONDS (45-60) L Coagulation Comments Problem\Assessment\Plan A 70 years old male who was transferred from the [facility] for further management with a concern of non-STEMI S the patient presented to the ER with acute chest pain and shortness of breaths, coughing with the past medical history of CAD, CHF, DVT and hyperlipidemia, hypothyroidism, 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 The patient was transferred for an NSTEMI however the patient is troponins are flat with the initial troponin of 375 followed by 341. followed by 385.Lexiscan stress test as ordered for the morning the patient is on heparin drip . Dr Pereira ordered 25 mg of metoprolol tartrate x1 and atorvastatin 40 mg x 1 and a fasting lipid panel is ordered. The patient has a acute respiratory failure as well as on 6 L of oxygen currently ABG was obtained which demonstrates a pCO2 of 53.2 repeat pCO2 is 52.7. Patient denied any chest pain to me when I evaluated the patient # NSTEMI # acute on chronic hypoxic respiratory failure from # possible CHF exacerbation # hyperventilation syndrome # BMI 60.1, > Class 4 obesity -elevated troponin level at [facility] with 0.56, repeated troponin here showing [address]-T elevation in EKG, Patient denied any chest pain since admission -was On IV heparin as per cardiac protocol -given IV loading dose of the furosemide 60 mg followed by 40 daily -oxygen supplement as needed -will continue telemetry monitoring -med rec done by Dr Pereira -possible hypoventilation syndrome ABG repeated and result reviewed, retaining PCo2 not Able to get the stress testing as per nursing staff , patient is started on heart healthy diet. Patient was also evaluated by Infectious Disease team and they recommended to continue vancomycin and to stop ceftriaxone. Per Dr. West he needs to demonstrate clearance of bloodstream. # acute metabolic encephalopathy -resolved likely from acute hypercapnic respiratory failure # Possible MRSA pneumonia: -chest x-ray showed Heart is enlarged. Moderate pulmonary vascular congestion with diffuse patchy airspace opacities which may be on the basis of pulmonary edema or infection. No sizable effusion or pneumothorax. -ABG done, maintaining normal pH with carbon dioxide retention and possible metabolic alkalosis compensation for chronic respiratory acidosis -was given IV vancomycin and Rocephin in [facility] -started IV Rocephin and azithromycin at the time of Admission. patient currently on vancomycin and ceftriaxone -blood culture positive preliminary report Staphylococcus aureus -CT head without IV contrast showed No acute intracranial abnormality. -normal ammonia -DuoNeb q.4 hours and Xopenex ordered # normochromic normocytic anemia -unknown etiology -possibly poor intake versus early stage of DAMIAN # atrial fibrillation with RVR patient is started on Cardizem drip yesterday in today changed to p.o. Cardizem # CODE STATUS: Full code, DVT prophylaxis: IV heparin Analgesia/sedation: IV morphine as needed Lines/tubes: PIV GI prophylaxis: Protonix Patient's current condition is guarded we will continue to follow patient in AM . production reproduction manager Najma working on discharge plan for patient in [facility] rehab and as per pillowcase sewer patient is accepted in [facility] rehab. Patient do not like to go to rehab but willing to go if needed. Date of Service: May 10, 2025 Billing Provider: NIRAV PIZARRO MD Common Visit Codes: [id number] INP/OBS CARE(HIGH) NIRAV PIZARRO MD May 10, 2025 19:39
[2025-05-11] VITALS (16 sets, daily range): BP systolic 135–170; BP diastolic 65–89; PULSE 79–94; RESP 15–34; TEMP 97.8–99.7; O2SAT 90–95
[2025-05-11] MEDS: VANCOmycin 1250MG/NS 250ml Bag 250 ML IV SCH (00:17)
[2025-05-11] MEDS: HYDROmorphone inj. 0.5 MG/0.5 ML DISP.SYRIN IV PRN (00:17)
[2025-05-11 07:12] LABS: MEAN PLATELET VOLUME 7.9 FL (7.4-10.4); RED CELL DISTRIBUTION WIDTH 16.2 % (11.5-14.5)
[2025-05-11 11:01] LABS: CREATININE 0.65 MG/DL (0.60-1.10); TOTAL CARBON DIOXIDE 38.5 MMOL/L (24-32); eCRCL 118 ML/MIN; eGFR > 90 ML/MIN
--- NOTE | 2025-05-11 12:26 | PROGRESS NOTE- Residence ---
Progress Note - Resident Providers to CC Resident Creating Document: ELLEN ROCKYAALIYAH Brown, RES ~ Antibiotic Timeout Antibiotic Ordered?: Yes Subjective The patient has been evaluated bedside. The patient states that he is feeling better, currently requiring 2 L of oxygen. Still reports some cough with clear sputum. Objective Vital Signs Date Time Temp Pulse Resp B/P (MAP) Pulse Ox O2 Delivery O2 Flow Rate FiO2 05/11/25 11:00 98.2 82 15 135/65 (88) 91 Nasal Cannula 2.0 05/11/25 09:51 32 Physical exam: General: Awake, alert, oriented. No acute distress. Obese. No anemia, Jaundice or clubbing. HEENT: Conjunctive are pink, sclerae clear, no icterus, pupil is equal in both sides, reactive to light, no ear discharge, no pharyngeal erythema or an edema. Neck: Supple, no adenopathy, thyromegaly. Trachea is midline. No JVD. Chest: Respiratory: Equal air entry bilaterally. Presence of crackles in the left lower lung. Cardiovascular: S1-S2 regular sinus rhythm and, regular rate, no gallops, no rubs, no murmurs Abdomen: No visible distention, Bowel sounds present on auscultation, on palpation: soft, nontender, no guarding, no rigidity. 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 Preserved strength and sensation. Skin: Warm and dry. Result Diagram: 05/11/25 0623 05/11/25 0920 Coagulation Studies Laboratory Tests Test 05/07/25 04:06 05/08/25 10:33 Prothrombin Time 11.4 SECONDS (9.0-12.0) INR International Normalized Ratio 1.1 INR Activated Partial Thromboplast Time 36 SECONDS (22-32) H APTT (Heparin Protocol) 31 SECONDS (45-60) L Coagulation Comments Assessment Assessment 70-year-old male patient transferred from [place] due to NSTEMI. Plan Plan MRSA bacteremia: Patient presented the hospital with chief complaint of chest pain and shortness of breath. X-ray showing moderate pulmonary vascular congestion and diffuse patchy airspace opacities which may be related to pulmonary edema or infection. The patient had blood cultures obtained at [facility] which showed MRSA. Blood cultures here showing Gram-positive cocci in clusters. Noticeable elevated procalcitonin. The patient does have some wound to the level the buttocks which could has been the source of MRSA. In addition the patient also does have respiratory symptoms which call be related to bacterial pneumonia. Recommendations: Continue vancomycin. Blood cultures clearance ordered, once cultures are cleared he will be okay for discharge. Other comorbidities: CHF, normocytic normochromic anemia, DVT, dyslipidemia, hypothyroidism, CAD: Appropriately managed by primary team. Resident MD attestation: Patient was seen, examined and discussed with the attending MD, Dr. West. Aaliyah Black Internal Medicine Resident [facility] Date of Service: May 11, 2025 Billing Provider: ESDRAS WEST MD Addendum Agree with above note. Patient seen and examined with Dr. Black. Continue vancomycin and wait for clearance of blood cultures. AALIYAH COTTER, RES May 11, 2025 12:26 ESDRAS WEST MD May 11, 2025 20:56
--- NOTE | 2025-05-11 19:22 | PROGRESS NOTE ---
Daily Progress Note Providers to CC ~ Antibiotic Timeout Antibiotic Ordered?: Yes Subjective Patient was seen in his room looked comfortable on 2 L nasal cannula. He was singing the song when I evaluated him. He is aware that he will go to [facility] once cleared by Infectious Disease team Objective Vital Signs Date Time Temp Pulse Resp B/P (MAP) Pulse Ox O2 Delivery O2 Flow Rate FiO2 05/11/25 15:55 88 24 Nasal Cannula 2.0 05/11/25 15:52 91 28 05/11/25 15:00 98.4 152/78 (102) Result Diagram: 05/11/25 0623 05/11/25 0920 General-patient not in any acute distress, alert awake , morbidly obese, chronically ill-appearing, age-appropriate HEENT-atraumatic normocephalic, neck supple without elevated JVD, no thyromegaly or carotid bruit. No lymphadenopathy bilaterally. Eyes-no icterus or pallor seen in eyes Chest-mild wheezing present to auscultation over right lung left lung sounds clear , breathing nonlabored no tachypnea, Heart-S1-S2 normal, regular heart rate no murmur Abdomen bowel sounds positive on auscultation, soft nondistended nontender no guarding, no rigidity Skin no active skin rash, no open decubitus wound over sacral area Neurology-grossly intact, nonfocal alert awake oriented Extremity- no pedal edema able to move all 4 extremities. Status post right BKA and using prosthesis Psychiatry - patient is not confused or agitated cooperated during physical examination Coagulation Studies Laboratory Tests Test 05/07/25 04:06 05/08/25 10:33 Prothrombin Time 11.4 SECONDS (9.0-12.0) INR International Normalized Ratio 1.1 INR Activated Partial Thromboplast Time 36 SECONDS (22-32) H APTT (Heparin Protocol) 31 SECONDS (45-60) L Coagulation Comments Problem\Assessment\Plan A 70 years old male who was transferred from the [facility] for further management with a concern of non-STEMI S the patient presented to the ER with acute chest pain and shortness of breaths, coughing with the past medical history of CAD, CHF, DVT and hyperlipidemia, hypothyroidism, 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 The patient was transferred for an NSTEMI however the patient is troponins are flat with the initial troponin of 375 followed by 341. followed by 385.Lexiscan stress test as ordered for the morning the patient is on heparin drip . Dr Pereira ordered 25 mg of metoprolol tartrate x1 and atorvastatin 40 mg x 1 and a fasting lipid panel is ordered. The patient has a acute respiratory failure as well as on 6 L of oxygen currently ABG was obtained which demonstrates a pCO2 of 53.2 repeat pCO2 is 52.7. Patient denied any chest pain to me when I evaluated the patient # NSTEMI # acute on chronic hypoxic respiratory failure from # possible CHF exacerbation # hyperventilation syndrome # BMI 60.1, > Class 4 obesity -elevated troponin level at [facility] with 0.56, repeated troponin here showing [address]-T elevation in EKG, Patient denied any chest pain since admission -was On IV heparin as per cardiac protocol -given IV loading dose of the furosemide 60 mg followed by 40 daily -oxygen supplement as needed -will continue telemetry monitoring -med rec done by Dr Pereira -possible hypoventilation syndrome ABG repeated and result reviewed, retaining PCo2 not Able to get the stress testing as per nursing staff , patient is started on heart healthy diet. Patient was also evaluated by Infectious Disease team and they recommended to continue vancomycin and to stop ceftriaxone. Per Dr. West he needs to demonstrate clearance of bloodstream. ID team following the patient. # acute metabolic encephalopathy -resolved likely from acute hypercapnic respiratory failure # Possible MRSA pneumonia: -chest x-ray showed Heart is enlarged. Moderate pulmonary vascular congestion with diffuse patchy airspace opacities which may be on the basis of pulmonary edema or infection. No sizable effusion or pneumothorax. -ABG done, maintaining normal pH with carbon dioxide retention and possible metabolic alkalosis compensation for chronic respiratory acidosis -was given IV vancomycin and Rocephin in [facility] -started IV Rocephin and azithromycin at the time of Admission. patient currently on vancomycin and ceftriaxone -blood culture positive preliminary report Staphylococcus aureus -CT head without IV contrast showed No acute intracranial abnormality. -normal ammonia -DuoNeb q.4 hours and Xopenex ordered # normochromic normocytic anemia -unknown etiology -possibly poor intake versus early stage of DAMIAN # atrial fibrillation with RVR patient is started on Cardizem drip yesterday in today changed to p.o. Cardizem # CODE STATUS: Full code, DVT prophylaxis: IV heparin Analgesia/sedation: IV morphine as needed Lines/tubes: PIV GI prophylaxis: Protonix Patient's current condition is guarded we will continue to follow patient in AM . environmental engineering manager working on discharge plan for patient in [facility] Date of Service: May 11, 2025 Billing Provider: NIRAV PIZARRO MD Common Visit Codes: [id number] INP/OBS CARE(HIGH) NIRAV PZIARRO MD May 11, 2025 19:22
[2025-05-12] VITALS (13 sets, daily range): BP systolic 149–165; BP diastolic 75–77; PULSE 73–89; RESP 22–38; TEMP 97.4–100.2; O2SAT 91–96
[2025-05-12] MEDS: VANCOMYCIN LEVEL IV ONE (00:30)
[2025-05-12 01:24] LABS: MEAN PLATELET VOLUME 7.5 FL (7.4-10.4); RED CELL DISTRIBUTION WIDTH 16.8 % (11.5-14.5)
[2025-05-12 01:35] LABS: CREATININE 0.55 MG/DL (0.60-1.10); TOTAL CARBON DIOXIDE 39.0 MMOL/L (24-32); eCRCL 139 ML/MIN; eGFR > 90 ML/MIN
--- NOTE | 2025-05-12 20:51 | DISCHARGE SUMMARY ---
Discharge Summary Providers to CC ~ Discharge Summary Admission Diagnosis: NSTEMI and Heart failure exacerbation Hospital Course DATE OF ADMISSION: 05/07/25 DATE OF DISCHARGE:05/12/25 CBC testing done on May 12, 2025 WBC 6.1 hemoglobin 12.0 hematocrit 36.3 platelet count 285. Serum chemistry done on May 12, 2025 sodium 140 potassium 4.2 creatinine 0.55 GFR greater than 90. Hemoglobin A1c six point, procalcitonin 0.69, normal lipid panel. ProBNP 4295 blood culture showed no growth after two days ECHOCARDIOGRAMConclusion Overall LVEF is 60-65%. Dilated LV size with normal wall thickness. Overall systolic function is normal. RV appears at least mildly dilated with normal function. Estimated PA systolic pressure of 48 mm of mercury Trileaflet AV appears sclerotic without stenosis. No insufficiency. TDS TV appears structurally normal with trace regurgitation. Normal PV without stenosis, physiologic insufficiency. Trace circumferential pericardial effusion without hemodynamic compromise. CT HEADIMPRESSION: No acute intracranial abnormality. CHEST,SINGLE VIEWIMPRESSION: Heart is enlarged. Moderate pulmonary vascular congestion with diffuse patchy airspace opacities which may be on the basis of pulmonary edema or infection. No sizable effusion or pneumothorax. Discharge Diagnosis\Comment: # type 2 IN # acute on chronic hypoxic respiratory failure from # possible CHF exacerbation # hyperventilation syndrome # BMI 60.1, > Class 4 obesity # acute metabolic encephalopathy -resolved likely from acute hypercapnic respiratory failure # MRSA pneumonia: # normochromic normocytic anemia # atrial fibrillation with RVR Operations\Procedures: None Consultants: Dr West Complications: None Condition on DC: Stable for transfer Discharge Summary: A 70 years old male who was transferred from the [facility] for further management with a concern of non-STEMI S the patient presented to the ER with acute chest pain and shortness of breaths, coughing with the past medical history of CAD, CHF, DVT and hyperlipidemia, hypothyroidism, 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 The patient was transferred for an NSTEMI however the patient is troponins are flat with the initial troponin of 375 followed by 341. followed by 385.Lexiscan stress test as ordered for the morning the patient is on heparin drip . Dr Pereira ordered 25 mg of metoprolol tartrate x1 and atorvastatin 40 mg x 1 and a fasting lipid panel is ordered. The patient has a acute respiratory failure as well as on 6 L of oxygen currently ABG was obtained which demonstrates a pCO2 of 53.2 repeat pCO2 is 52.7. Patient denied any chest pain to me when I evaluated the patient # type 2MI # acute on chronic hypoxic respiratory failure from # possible CHF exacerbation # hyperventilation syndrome # BMI 60.1, > Class 4 obesity -elevated troponin level at [facility] with 0.56, repeated troponin here showing [address]-T elevation in EKG, Patient denied any chest pain since admission -was On IV heparin as per cardiac protocol -given IV loading dose of the furosemide 60 mg followed by 40 daily -oxygen supplement as needed -will continue telemetry monitoring -med rec done by Dr Pereira -possible hypoventilation syndrome ABG repeated and result reviewed, retaining PCo2 not Able to get the stress testing as per nursing staff , patient is started on heart healthy diet. # acute metabolic encephalopathy -resolved likely from acute hypercapnic respiratory failure # Possible MRSA pneumonia: -chest x-ray showed Heart is enlarged. Moderate pulmonary vascular congestion with diffuse patchy airspace opacities which may be on the basis of pulmonary edema or infection. No sizable effusion or pneumothorax. -ABG done, maintaining normal pH with carbon dioxide retention and possible metabolic alkalosis compensation for chronic respiratory acidosis -was given IV vancomycin and Rocephin in [facility] -started IV Rocephin and azithromycin at the time of Admission. patient currently on vancomycin and ceftriaxone -blood culture positive preliminary report Staphylococcus aureus -CT head without IV contrast showed No acute intracranial abnormality. -normal ammonia -DuoNeb q.4 hours and Xopenex ordered Patient was also evaluated by Infectious Disease team and they recommended to continue vancomycin and to stop ceftriaxone. Per Dr. West he needs to demonstrate clearance of bloodstream. ID team following the patient. # normochromic normocytic anemia # atrial fibrillation with RVR patient is started on Cardizem drip yesterday in today changed to p.o. Cardizem Patient is feeling better he has been afebrile and getting discharged to rehab in stable condition. Medication reconciliation done for rehab facility. Patient is seen and examined on the day of discharge. All labs, diagnostic workup and discharge plan discussed with patient and family members in detail before her discharge. All questions and queries answered to the best of my professional medical knowledge. I heard patient's concerns and address appropriately. Physical therapy team recommended rehab discharge for patient . artist and repertoire manager Najma involved in patient's discharge plan. Discharge instructions provided to the patient General-patient not in any acute distress, alert awake , morbidly obese, chronically ill-appearing, age-appropriate HEENT-atraumatic normocephalic, neck supple without elevated JVD, no thyromegaly or carotid bruit. No lymphadenopathy bilaterally. Eyes-no icterus or pallor seen in eyes Chest-mild wheezing present to auscultation over right lung left lung sounds clear , breathing nonlabored no tachypnea, Heart-S1-S2 normal, regular heart rate no murmur Abdomen bowel sounds positive on auscultation, soft nondistended nontender no guarding, no rigidity Skin no active skin rash, no open decubitus wound over sacral area Neurology-grossly intact, nonfocal alert awake oriented Extremity- no pedal edema able to move all 4 extremities. Status post right BKA and using prosthesis Psychiatry - patient is not confused or agitated cooperated during physical examination *Problems/Diagnosis: (1) Acute respiratory failure with hypoxia and hypercarbia Status: Acute Total Time Spent on D/C: > 30 Minutes Date of Service: May 12, 2025 Billing Provider: NIRAV PIZARRO MD Common Visit Codes: 85374-AYT/OBS DISCH DAY >30min NIRAV PIZARRO MD May 12, 2025 20:47
== END 2025-05-12 14:53 | DRG 280 ==
LOC: ER 03:17 → ED HOLD 05:43 → PCU 3S 11:12
PROVIDERS: ADMIT Internal Medicine Pulmonary Disease; ATTEND Family Medicine
PROC: 5A09357 Assistance with Respiratory Ventilation, Less than 24 Consecutive Hours, Continuous Positive Airway Pressure (ICD-10-PCS; principal; 2025-05-08)
PROC: 5A09357 Assistance with Respiratory Ventilation, Less than 24 Consecutive Hours, Continuous Positive Airway Pressure (ICD-10-PCS; 2025-05-09)
PROC: 5A09357 Assistance with Respiratory Ventilation, Less than 24 Consecutive Hours, Continuous Positive Airway Pressure (ICD-10-PCS; 2025-05-10)
PROC: 5A09357 Assistance with Respiratory Ventilation, Less than 24 Consecutive Hours, Continuous Positive Airway Pressure (ICD-10-PCS; 2025-05-11)
PROC: 5A09357 Assistance with Respiratory Ventilation, Less than 24 Consecutive Hours, Continuous Positive Airway Pressure (ICD-10-PCS; 2025-05-12)
DX: I11.0 Hypertensive heart disease with heart failure (principal); G93.41 Metabolic encephalopathy; I21.A1 Myocardial infarction type 2; J15.212 Pneumonia due to Methicillin resistant Staphylococcus aureus; J96.21 Acute and chronic respiratory failure with hypoxia; J96.22 Acute and chronic respiratory failure with hypercapnia; I50.33 Acute on chronic diastolic (congestive) heart failure; J15.9 Unspecified bacterial pneumonia; J15.69 Pneumonia due to other Gram-negative bacteria; R65.10 Systemic inflammatory response syndrome (SIRS) of non-infectious origin without acute organ dysfunction; Z79.01 Long term (current) use of anticoagulants; E66.01 Morbid (severe) obesity due to excess calories; E03.9 Hypothyroidism, unspecified; D64.9 Anemia, unspecified; E87.29 Other acidosis; Z68.44 Body mass index [BMI] 60.0-69.9, adult; E78.5 Hyperlipidemia, unspecified; I48.91 Unspecified atrial fibrillation; I25.10 Atherosclerotic heart disease of native coronary artery without angina pectoris; F45.8 Other somatoform disorders; Z79.899 Other long term (current) drug therapy; Z89.511 Acquired absence of right leg below knee
CPT/HCPCS: 36410; 36415; 36600; 70450; 71045; 76937; 80048; 80053; 80061; 80076; 80202; 81001; 82140; 82803; 83036; 83605; 83735; 83880; 84100; 84145; 84443; 84484; 85018; 85025; 85610; 85730; 87040; 87077; 87081; 87186; 93005; 93308; 94640; 94660; 94760; 96374; 97110; 97116; 97162; 97530; 99291; A4615; A6213; A6250; A6258; A6590; A9500; C1751; G0378; J0456; J0696; J1171; J1644; J1938; J2270; J3373; J3374; J3490; J7030; J7040; J7050; J7614